=== PATIENT | female | born 1980 | race Caucasian/White ===

== ENCOUNTER 2016-02-17 10:34 | Emergency (ER) | payer OTHER ==
[~2016-02-17] VITALS: Ht 177.8 cm; Wt 66.7 kg
[~2016-02-17 10:34] MED LIST: BENTYL20 M1 PO; CIPRO500 M1 PO; METRONIDAZOLE500 M1 PO; TRAMADOL HCL50 M1 PO; ZOFRAN ODT4 M1 PO
--- NOTE | 2016-02-17 10:58 | ED GI/GU/ABDOMINAL COMPLAINT ---
History of Present Illness General Chief Complaint: Abdominal Pain/Flank Pain Stated Complaint: L SIDE ABD PAIN Source: patient, old records Exam Limitations: no limitations Vital Signs & Intake/Output Vital Signs & Intake/Output Vital Signs Date Time Temp Pulse Resp B/P Pulse O2 O2 Flow FiO2 Ox Delivery Rate 02/16 1307 95 18 128/78 100 Room Air 02/16 1037 97.8 120 20 119/82 99 Room Air Allergies Coded Allergies: NO KNOWN ALLERGIES (02/17/16) Reconcile Medications Dicyclomine HCl (Bentyl) 20 MG TABLET 1 TAB PO Q6H PRN ABDOMINAL PAIN Hydromorphone HCl (Dilaudid) 2 MG TABLET 1 TAB PO Q6HR PRN PAIN Tramadol HCl 50 MG TABLET 1-2 TAB PO Q6 PRN pain Triage Note: PT TO ED C/O LLQ PAIN X 4 DAYS. C/O NAUSEA, DENIES V/D. PAIN RADIATES FROM LEFT FLANK TO LEFT GROIN. PT HAS COLONOSCOPY SCHEDULED ON WEDNESDAY WITH DR GARG. PT STATES SHE HAS BEEN HAVING ABD ISSUES FOR A WHILE. Triage Nurses Notes Reviewed? yes ? N Is pt currently ? No Onset: Gradual Duration: day(s): (5) Timing: recent history Quality/Severity: cramping Severity Numbers: 8 Location: left lower quadrant Radiation: no radiation Activities at Onset: none Prior Abdominal Problems: similar symptoms Past Sexual History: Unobtainable at this time No Modifying Factors: none HPI: Patient is a 35 year old female with history of abdominal pain, weight loss nothing going on for the past 2 months, pain got worse over the past 5 days. Pain is crampy with intermittent sharp stabbing pain over the left flank radiating into the left lower quadrant. Nothing seems to make the pain better or worse. Denies any fevers or chills. No nausea or vomiting. Denies chest pain palpitations or shortness of breath. No sick contacts or recent travel. Has been taking tramadol at home with some relief. (YAMILEX MOHAN) Past History Travel History Traveled to [place] past 21 day No Medical History Any Pertinent Medical History? see below for history Neurological: NONE EENT: NONE Cardiovascular: NONE Respiratory: NONE Gastrointestinal: NONE Hepatic: NONE Renal: NONE Musculoskeletal: NONE Psychiatric: NONE Endocrine: NONE Blood Disorders: NONE Cancer(s): NONE TOWEL FOLDER/Reproductive: endometriosis, fibroid Surgical History Surgical History: laparascopy, D+C Psychosocial History What is your primary language Danish Tobacco Use: Current Not Daily ETOH Use: denies use Illicit Drug Use: denies illicit drug use Family History Hx Contributory? No (YAMILEX MOHAN) Review of Systems Review of Systems Constitutional: Reports: no symptoms. Comments Review of systems: See HPI, All other systems negative. Constitutional, no chills fever or weight loss HEENT: No visual changes no sore throat no congestion Cardiovascular: No chest pain ,palpitation Skin, no jaundice no rashes Respiratory: No dyspnea cough sputum or hemoptysis GI: No nausea no vomiting : No dysuria No hematuria Muscle skeletal: no neck pain, Neurologic: No numbness Immunology: No splenectomy or history of AIDS (YAMILEX MOHAN) Physical Exam Physical Exam General Appearance: well developed/nourished, no apparent distress, alert, awake , comfortable Gastrointestinal: normal bowel sounds, tenderness Comments: Well-developed well-nourished person in no acute distress HEENT: Pupils equally round and reactive to light and accommodation. Nose is atraumatic. Neck: Normal inspection Back: Nontender, no CVA tenderness. Full range of motion Cardiovascular: Regular rate and rhythms no murmurs rubs or gallops, normal JVP Respiratory: Chest nontender. No respiratory distress.breath sounds clear to auscultation bilaterally Abdomen: Soft, tentative palpation over the left flank, left lower quadrant with mild guarding, nondistended, no appreciable organomegaly. Normal bowel sounds. No ascites Extremity: No edema Neuro: Alert oriented x3 Skin: No appreciable rash on exposed skin, skin is warm and dry. Psych: Mood and affect is normal, memory and judgment is normal. Core Measures ACS in differential dx? No Severe Sepsis Present: No Septic Shock Present: No (YAMILEX MOHAN) Progress Differential Diagnosis: ulcerative colitis, nonspecific colitis, diverticulitis, electrolyte abnormality, dehydration Plan of Care: Orders Procedure Date/time Status URINE 02/16 1057 Complete URINALYSIS 02/16 1057 Complete COMPREHENSIVE METABOLIC PANEL 02/16 1057 Complete CBC WITHOUT DIFFERENTIAL 02/16 1057 Complete Laboratory Tests 02/17/16 1140: Anion Gap 14, Estimated GFR > 60, BUN/Creatinine Ratio 13.3, Glucose 84, Calcium 10.0, Total Bilirubin 0.6, AST 30, ALT 37, Alkaline Phosphatase 153 H, Total Protein 7.5, Albumin 4.2, Globulin 3.3, Albumin/Globulin Ratio 1.3, CBC w Diff NO MAN DIFF REQ, RBC 4.34, MCV 92.0, MCH 30.4, RDW 13.2, MPV 8.9, Gran % 80.8 H , Lymphocytes % 9.4 L, Monocytes % 8.7, Eosinophils % 0.8, Basophils % 0.3, Absolute Granulocytes 10.8 H, Absolute Lymphocytes 1.3, Absolute Monocytes 1.2 H, Absolute Eosinophils 0.1, Absolute Basophils 0, PUBS MCHC 33.0, Urinalysis LIGHT H, Urine Color YEL, Urine Clarity HAZY H, Urine pH 6.5, Ur Specific [place] 1.010, Urine Protein NEG, Urine Ketones 15 H, Urine Nitrite NEG, Urine Bilirubin NEG, Urine Urobilinogen 0.2, Ur Leukocyte Esterase NEG, Ur Microscopic SEDIMENT EXAMINED, Urine WBC RARE, Ur Epithelial Cells MOD H, Urine Hemoglobin NEG, Urine Glucose NEG, Urine Test NEGATIVE Diagnostic Imaging: Viewed by Me: Ultrasound. Discussed w/RAD: Ultrasound. Radiology Impression: PATIENT: PARVIZ MO PRESENT AGE: 35 PATIENT ACCOUNT NO: [id number] : 79 LOCATION: [facility] ORDERING PHYSICIAN: YAMILEX LAUREANO SERVICE DATE: 02/17/16 EXAM TYPE: US - US-RENAL/KIDNEY EXAMINATION: US RETROPERITONEAL COMPLETE (RENAL) CLINICAL INFORMATION: Left flank pain. Evaluate for kidney stone.. COMPARISON: Previous CT December 2015 of the abdomen and pelvis and MR of the abdomen January 2016 TECHNIQUE: Real-time imaging of the kidneys and bladder. FINDINGS: RIGHT KIDNEY: 11.1 x 5.2 x 4.7 cm (SAG x AP x TRV). The kidney is normal in size, contour, and echogenicity. Renal cortical thickness is normal. No calculi or focal parenchymal lesions. No hydronephrosis. LEFT KIDNEY: 9.5 x 5.5 x 5 cm (SAG x AP x TRV). The kidney is normal in size, contour, and echogenicity. Renal cortical thickness is normal. No calculi or focal parenchymal lesions. No hydronephrosis. BLADDER: The bladder is not optimally distended. Bilateral ureteral jets are demonstrated. Prevoid bladder volume is 17 mL. IMPRESSION: Normal renal ultrasound. Bladder not full and not optimally evaluated. Initial ED EKG: none Comments: Patient given IV morphine, IV fluids on arrival. CBC, CMP was drawn and sent. Patient informed of all lab results. Feeling much better after IV Dilaudid. Patient was seen sleeping in the emergency department room. Patient will be discharged home. Spoke with Dr. patel, he still wants patient to prep for colonoscopy on Wednesday. She'll return for any worsening symptoms or concerns. (YAMILEX MOHAN) Departure Departure Time of Disposition: 1430 Disposition: HOME OR SELF CARE Condition: Stable Clinical Impression Primary Impression: Flank pain Secondary Impressions: Leukocytosis Qualifiers: Leukocytosis type: unspecified Qualified Code: D72.829 - Elevated white blood cell count, unspecified Referrals: PATIENT HAS NO PRIMARY CARE DR (PCP/Family) Referred to [facility] as new patient No Additional Instructions: Follow-up with your primary care physician, make appointment. Keep your plan with Dr. Garg for Wednesday.PREP tomorrow. Take DilaUDID as prescribed for pain. Increase fluids. Return for worsening symptoms or concerns. Departure Forms: Customer Survey General Discharge Information Prescriptions: Current Visit Scripts Hydromorphone HCl (Dilaudid) 1 TAB PO Q6HR PRN PAIN #10 TAB (YAMILEX MOHAN) PA/FINGER GRIP MACHINE OPERATOR Co-Sign Statement Statement: ED Attending supervision documentation- [] I saw and evaluated the patient. I have also reviewed all the pertinent lab results and diagnostic results. I agree with the findings and the plan of care as documented in the PA's/FINGER GRIP MACHINE OPERATOR's documentation. [X] I have reviewed the ED Record and agree with the PA's/FINGER GRIP MACHINE OPERATOR's documentation. [] Additions or exceptions (if any) to the PAs/FINGER GRIP MACHINE OPERATOR's note and plan are summarized below: [] (CHET CHAMBERS DO)
[2016-02-17 11:54] LABS: ABSOLUTE BASOPHIL COUNT 0 /CUMM (0.0-0.2); ABSOLUTE EOSINOPHIL COUNT 0.1 /CUMM (0.0-0.7); ABSOLUTE GRANULOCYTE CT 10.8 /CUMM (1.4-6.5); ABSOLUTE LYMPH COUNT 1.3 /CUMM (1.2-3.4); ABSOLUTE MONOCYTE COUNT 1.2 /CUMM (0.10-0.60); BASOPHIL % 0.3 % (0.0-2.0); EOSINOPHIL % 0.8 % (0-5); GRANULOCYTE % 80.8 % (42.2-75.2); MEAN CORPUSCULAR HGB 30.4 PG (27.0-31.0); MEAN PLATELET VOLUME 8.9 FL (7.4-10.4); PLATELET COUNT 510 /CUMM (130-400); RBC DISTRIBUTION WIDTH 13.2 % (11.5-14.5); RED BLOOD CELL CT 4.34 /CUMM (4.20-5.40); WHITE BLOOD CELL COUNT 13.3 /CUMM (4.8-10.8)
[2016-02-17 13:07] VITALS: BP 128/78
--- NOTE | 2016-02-17 14:27 | ULTRASOUND REPORT ---
EXAMINATION: US RETROPERITONEAL COMPLETE (RENAL) CLINICAL INFORMATION: Left flank pain. Evaluate for kidney stone.. COMPARISON: Previous CT December 2015 of the abdomen and pelvis and MR of the abdomen January 2016 TECHNIQUE: Real-time imaging of the kidneys and bladder. FINDINGS: RIGHT KIDNEY: 11.1 x 5.2 x 4.7 cm (SAG x AP x TRV). The kidney is normal in size, contour, and echogenicity. Renal cortical thickness is normal. No calculi or focal parenchymal lesions. No hydronephrosis. LEFT KIDNEY: 9.5 x 5.5 x 5 cm (SAG x AP x TRV). The kidney is normal in size, contour, and echogenicity. Renal cortical thickness is normal. No calculi or focal parenchymal lesions. No hydronephrosis. BLADDER: The bladder is not optimally distended. Bilateral ureteral jets are demonstrated. Prevoid bladder volume is 17 mL. IMPRESSION: Normal renal ultrasound. Bladder not full and not optimally evaluated.
[2016-02-17] MEDS ORDERED: DILAUDID2 M1 PO (14:32)
== END 2016-02-17 14:53 ==
LOC: ERH 10:34
PROVIDERS: Physician Assistant
DX: R10.9 Unspecified abdominal pain (principal); D72.829 Elevated white blood cell count, unspecified
CPT/HCPCS: 76775; 81001; 81025; 96374; 96375